=== PATIENT | female | born 1950 | race Caucasian/White ===

== ENCOUNTER 2021-12-22 16:10 | Inpatient (IN) | payer MEDICARE, BC, SELFPAY ==
[2021-12-22] VITALS (24 sets, daily range): BP systolic 86–163; BP diastolic 50–109; PULSE 46–65; RESP 18–20; TEMP 36.4–36.6; O2SAT 93–96; BMI 32.3; BMI 35.9
--- NOTE | 2021-12-22 16:17 | CRLHL7_ITS ---
For Patients: As a result of the Century Cures Act, medical imaging exams and procedure reports are released immediately into your electronic medical record. You may view this report before your referring provider. If you have questions, please contact your health care provider. INDICATION: Difficulty speaking. Unsteady gait. TECHNIQUE: CT head without contrast. COMPARISON: None. FINDINGS: CSF spaces: Within normal limits for age. Brain parenchyma and extra-axial spaces: Moderate bilateral frontal lobe atrophy. The dunn-white differentiation is normal. No sign of mass, hemorrhage, or midline shift. No extra-axial fluid collection. Skull base and calvarium: The visualized paranasal sinuses and mastoid air cells demonstrate no acute or significant findings. The visualized orbits are grossly unremarkable. No skull fractures. IMPRESSION: There is moderate atrophy in the frontal lobes. Otherwise unremarkable exam. No sign of acute ischemia or intracranial hemorrhage. Please note that all CT scans at this facility use dose modulation, iterative reconstruction, and/or weight-based dosing when appropriate to reduce radiation dose to as low as reasonably achievable. Dictated by Uche Ugalde MD @ 12/22/2021 4:34:53 PM (Electronically Signed)
--- NOTE | 2021-12-22 16:26 | CRLHL7_ITS ---
For Patients: As a result of the Century Cures Act, medical imaging exams and procedure reports are released immediately into your electronic medical record. You may view this report before your referring provider. If you have questions, please contact your health care provider. DATE: 12/22/2021 CLINICAL HISTORY: Patient with headache and word-finding difficulties. TECHNIQUE: Standard helical CT image acquisition of the neck up to the skull base after bolus intravenous contrast enhancement. Multiplanar reconstructed images performed on a separate workstation. COMPARISON: CT same day FINDINGS: The origins of the great vessels from the aortic arch are patent. The origin of the right vertebral artery is patent. The origin of the left vertebral artery is patent. The common carotid arteries are patent. There is a severe (70%) stenosis at the origin of the right internal carotid artery by NASCET criteria caused by a non-calcified plaque with a 1.5mm residual lumen. The left internal carotid artery is occluded at its origin with reconstitution in its supraclinoid segment via the [place] and left ophthalmic artery. The rest of the cervical segments of the right internal carotid artery are patent up to the skull base. The right vertebral artery is dominant. The cervical segments of the vertebral arteries are patent up to the skull base. The visualized lung apices are unremarkable. The thyroid gland is unremarkable. The soft tissues of the neck are unremarkable. There are degenerative changes in the cervical spine. IMPRESSION: 1. The left internal carotid artery is occluded at its origin with reconstitution in its supraclinoid segment via the [place] and left ophthalmic artery. 2. Severe (70%) stenosis at the origin of the right internal carotid artery by NASCET criteria caused by a non-calcified plaque with a 1.5mm residual lumen. Please note that all CT scans at this facility use dose modulation, iterative reconstruction, and/or weight-based dosing when appropriate to reduce radiation dose to as low as reasonably achievable. Dictated by Brittany Jenkins MD @ 12/23/2021 8:46:42 AM (Electronically Signed)
--- NOTE | 2021-12-22 16:26 | CRLHL7_ITS ---
For Patients: As a result of the Century Cures Act, medical imaging exams and procedure reports are released immediately into your electronic medical record. You may view this report before your referring provider. If you have questions, please contact your health care provider. DATE: 12/22/2021 CLINICAL HISTORY: Patient with headache and word finding difficulty. TECHNIQUE: Standard helical CT image acquisition through the intracranial circulation following intravenous administration of contrast material with bolus tracking. Multiplanar reconstructed images were performed and interpreted. COMPARISON: CT same day. FINDINGS: The left internal carotid artery is occluded at its origin with reconstitution in its supraclinoid segment via the [place] and left ophthalmic artery. The left middle cerebral artery is widely patent. There is no cerebral aneurysm. The right internal carotid artery is normal. The right middle cerebral artery and its branches are normal. The right anterior cerebral artery and its branches are normal. The left anterior cerebral artery and its branches are normal. The anterior communicating artery is well visualized and appears normal. The right vertebral artery and PICA are normal. The left vertebral artery and PICA are normal. The right vertebral artery is dominant. The basilar artery is patent and appears normal. The right posterior cerebral artery is normal. The left posterior cerebral artery is normal. The visualized venous structures are patent. IMPRESSION: The left internal carotid artery is occluded at its origin with reconstitution in its supraclinoid segment via the [place] and left ophthalmic artery. The left middle cerebral artery is widely patent. Please note that all CT scans at this facility use dose modulation, iterative reconstruction, and/or weight-based dosing when appropriate to reduce radiation dose to as low as reasonably achievable. Dictated by Brittany Jenkins MD @ 12/23/2021 8:48:55 AM (Electronically Signed)
--- NOTE | 2021-12-22 16:29 | ED_ITS ---
HPI - General Adult General Chief complaint: Neuro Symptoms/Altered Deficit Stated complaint: trouble speaking, headche on left side Time Seen by Provider: 12/22/21 16:24 History of Present Illness HPI narrative: 71-year-old woman accompanied by her son I believe with the concern of diff iculty finding words. Assessed initially seated in the triage room. At approximately 6-1/2 hours ago 10:00 a.m. apparently had been experiencing a headache left side of her head. And then 3 hours ago 130 p.m. daughter noted she was having difficulty finding words. It appears as though there were no witnesses to events between 0 and 1:30 p.m. triage nursing today noted that she seemed rather unsteady and stumbling gesturing to the left as does the patient on the way into the emergency department Interview certainly is challenged by Ms. Armas having difficulty with word finding. She is able to answer yes no questions possibly. Seems indicate not having shortness of breath or difficulty breathing. Has no abdominal pain. No cough or cold symptoms. Does describe pain in the left side of her head. She has not been noted to be vomiting. She is able to engage appropriately with exam. Is not clear that she typically gets headaches. Related Data Home Medications Medication Instructions Recorded Confirmed albuterol sulfate 90 mcg/actuation 2 inh inhalation Q4H PRN 12/22/21 12/22/21 aerosol inhaler (ProAir HFA) amlodipine 10 mg tablet 10 mg PO DAILY 12/22/21 12/22/21 atorvastatin 80 mg tablet 80 mg PO HS 12/22/21 12/22/21 citalopram 40 mg tablet 40 mg PO DAILY 12/22/21 12/22/21 ergocalciferol (vitamin D2) 1,250 50,000 unit PO .weekly 12/22/21 12/22/21 mcg (50,000 unit) capsule fluticasone propionate 230 2 puff inhalation Q12H 12/22/21 12/22/21 mcg-salmeterol 21 mcg/actuation HFA inhaler (Advair HFA) irbesartan 300 1 tab PO DAILY 12/22/21 12/22/21 mg-hydrochlorothiazide 12.5 mg tablet trazodone 100 mg tablet 200 mg PO HS PRN insomnia 12/22/21 12/22/21 Allergies Allergy/AdvReac Type Severity Reaction Status Date / Time No Known Drug Allergies Allergy Verified 12/22/21 17:32 [facility] Medical History (Updated 12/23/21 @ 11:58 by Clemente Bauer MD) Colon polyps COPD (chronic obstructive pulmonary disease) Essential hypertension Hyperlipidemia Insomnia Surgical History (Updated 12/22/21 @ 23:07 by Yuliya Funes MD) H/O breast implant H/O: section Social History Highest level of school completed/degree received: 12th grade, no diploma Smoking Status: Current every day smoker What tobacco products do you use: cigarettes Smoking packs per day: 1 Smoking cigarettes per day: 20.0 Years smoked: 53 Smoking pack-years: 53.00 Do you use any of these nicotine containing products: None Second hand tobacco smoke exposure: Yes How often do you have a drink containing alcohol: monthly or less Alcohol type: hard liquor How many standard drinks containing alcohol do you have on a typical day: 1 or 2 How often do you have six or more drinks on one occasion: Never AUDIT-C Alcohol total score: 1 Non-prescribed substance use: denies use Caffeine: Yes (2-3 cups coffee daily) service: No Exam Narrative: Exam Narrative: NAD. GCS 15. Smells of cigarette smoke. Seated calmly. Head is atraumatic. Cranial nerves 2-12 intact but seems to be indicating some loss of sensation in the forehead initially though this is inconsistent with repeat exam. She is not have as noted, any loss of motor to her face. Appears to be moving all extrem ities without difficulty. Appears to have full strength in all extremities with excellent heel seat fitter strength bilaterally. Extremities without edema well perfused. Breathing easily. Lungs are clear. Cardiovascular was regular rate and rhythm no apparent murmur rub or gallop. No facial swelling erythema or tenderness appreciated though she does indicate some pain to palpation of the left parietal temporal area. Ear canal free of fluid. Neck appears to be supple nontender. She clearly has difficulty with word finding. She is able to make a statement of a few words; words don't associate. Is not able to read the brochure that I hold up to her face nodding yes but not able to articulate what it says ?quit plan? I would estimate NIHSS at 4 Const: Vital Signs, click to edit/add: Vital Signs - 24 hr 12/22/21 16:27 12/22/21 16:28 12/22/21 17:00 Temperature 97.9 F Pulse Rate Pulse Rate [Apical ] 54 L Pulse Rate [Right Pulse Oximeter] 65 Respiratory Rate 18 Blood Pressure Blood Pressure [Le ft Arm] Blood Pressure [Ri ght Upper Arm] 137/81 Pulse Oximetry 96 95 Oxygen Delivery Me thod Room Air 12/22/21 16:34 12/22/21 16:45 12/22/21 16:47 Temperature Pulse Rate 64 60 58 L Pulse Rate [Apical ] Pulse Rate [Right Pulse Oximeter] Respiratory Rate Blood Pressure 120/104 H Blood Pressure [Le ft Arm] Blood Pressure [Ri ght Upper Arm] Pulse Oximetry 95 94 95 Oxygen Delivery Me thod 12/22/21 17:00 12/22/21 17:02 12/22/21 17:17 Temperature Pulse Rate 55 L 55 L Pulse Rate [Apical ] Pulse Rate [Right Pulse Oximeter] Respiratory Rate Blood Pressure 124/53 L 140/109 H Blood Pressure [Le ft Arm] Blood Pressure [Ri ght Upper Arm] Pulse Oximetry 96 94 Oxygen Delivery Me thod 12/22/21 17:37 12/22/21 17:45 12/22/21 17:48 Temperature Pulse Rate 62 51 L 52 L Pulse Rate [Apical ] Pulse Rate [Right Pulse Oximeter] Respiratory Rate Blood Pressure 137/50 L Blood Pressure [Le ft Arm] Blood Pressure [Ri ght Upper Arm] Pulse Oximetry 96 96 96 Oxygen Delivery Me thod 12/22/21 18:00 12/22/21 18:02 12/22/21 18:16 Temperature Pulse Rate 52 L 55 L 55 L Pulse Rate [Apical ] Pulse Rate [Right Pulse Oximeter] Respiratory Rate Blood Pressure 133/67 Blood Pressure [Le ft Arm] Blood Pressure [Ri ght Upper Arm] Pulse Oximetry 96 96 95 Oxygen Delivery Me thod 12/22/21 18:17 12/22/21 18:30 12/22/21 18:34 Temperature Pulse Rate 54 L 54 L 55 L Pulse Rate [Apical ] Pulse Rate [Right Pulse Oximeter] Respiratory Rate Blood Pressure 86/71 L 132/53 L Blood Pressure [Le ft Arm] Blood Pressure [Ri ght Upper Arm] Pulse Oximetry 96 95 94 Oxygen Delivery Me thod 12/22/21 18:45 12/22/21 18:47 12/22/21 19:51 Temperature 97.9 F Pulse Rate 55 L 53 L Pulse Rate [Apical ] 61 Pulse Rate [Right Pulse Oximeter] Respiratory Rate 18 Blood Pressure 118/59 L Blood Pressure [Le ft Arm] 163/58 H Blood Pressure [Ri ght Upper Arm] Pulse Oximetry 96 94 96 Oxygen Delivery Me thod Room Air Documenting provider has reviewed patient's vital signs: yes Course Course Hospital Course: Will be sent for CT head, angio pending initial result. Reevaluation(s) Reevaluation #1: Reviewed again with Ms. Armas her symptoms. Seems to be stating a few more words but still quite unclear has a little trouble expressing herself with speech or with writing. Words are intelligible but not strung together in sentence. As examine occurring in the bed is able to demonstrate better coordination of extremities was actually appears to be quite good. She is bilaterally accurate with heel to villalobos -- no evidence generally of limb ataxia. Time: 17:00 Consultations Consultation #1: While in initial head CT scan, I spoke with Stroke Neuro. Noting numerous variables and timing of initial headache, would be outside the window for intervention. Angio results still pending. Consultation #2: Spoke with our hospitalist anticipating admission. Returning to see Mrs. Armas, she is forming longer sentences still clearly with word-finding difficulty. There is a subtle slurring to her speech at times as well. Laughs. Otherwise appears to feel well. CT angiography is now complete and pending result. Time: 17:44 Consultation #3: I received a call from radiology for results of CTA. Noting occlusion of the left internal carotid artery. Good collaterals are reported. Conveyed this to Stroke Neuro thought left internal carotid occlusion chronic. Given aspirin and Plavix per recommendation. Additional Consultation(s): With full results available of CTA Stroke Neuro still recommending admission with follow-up MRI and then revascularization given bilateral nature of carotid occlusions. No bed availability elsewhere. CTA IMPRESSION: 1. The left internal carotid artery is occluded at its origin with reconstitution in its supraclinoid segment via the [place] and left ophthalmic artery. 2. Severe (70%) stenosis at the origin of the right internal carotid artery by NASCET criteria caused by a non-calcified plaque with a 1.5mm residual lumen. Vital Signs Vital signs: Initial Vital Signs Temperature 97.9 F 12/22/21 16:27 Temperature Source Temporal Artery Scan 12/22/21 16:27 Pulse Rate 65 12/22/21 16:27 Respiratory Rate 18 12/22/21 16:27 Blood Pressure 137/81 12/22/21 16:27 Blood Pressure Mean 99 12/22/21 16:27 Blood Pressure Position Sitting 12/22/21 16:27 Pulse Oximetry 96 12/22/21 16:27 Oxygen Delivery Method 12/22/21 16:27 Vital Signs Temperature 97.9 F 12/22/21 16:27 Pulse Rate 65 12/22/21 16:27 Respiratory Rate 18 12/22/21 16:27 Blood Pressure 137/81 12/22/21 16:27 Pulse Oximetry 96 12/22/21 16:27 Oxygen Delivery Method 12/22/21 16:27 Temperature 98.4 F 12/23/21 08:00 Pulse Rate 61 12/23/21 08:00 Respiratory Rate 18 12/23/21 08:00 Blood Pressure 143/85 H 12/23/21 08:00 Pulse Oximetry 92 12/23/21 08:00 Oxygen Delivery Method 12/23/21 08:00 Medical Decision Making Lab Data Lab results reviewed: Yes I reviewed the patient's lab results Labs: Lab Results 12/22/21 12/22/21 12/22/21 Range/Units 16:24 16:28 16:28 WBC 5.92 (4.50-11.00) K/uL RBC 4.63 (4.00-5.20) m/uL Hgb 14.5 (12.0-16.0) gm/dL Hct 43.9 (33.0-51.0) % MCV 95 (80-100) fL MCH 31 (26-34) pg MCHC 33 (32-36) gm/dL RDW Coeff of Parviz 13.1 (11.5-15.5) % Plt Count 178 (140-440) K/uL Neut % (Auto) 58.6 (42.0-72.0) % Lymph % (Auto) 31.3 (20-44) % [place] % (Auto) 7.9 (0.0-11.0) % Eos % (Auto) 1.5 (0.0-7.0) % Baso % (Auto) 0.7 (0.0-3.0) % Neut # (Auto) 3.47 (1.7-7.0) K/uL Lymph # (Auto) 1.85 (0.90-2.90) K/uL [place] # (Auto) 0.50 (0.00-0.90) K/UL Eos # (Auto) 0.09 (0.00-0.50) K/uL Baso # (Auto) 0.04 (0.00-0.30) K/uL Abs Immat Gran (auto) 0.00 (0.00-0.30) K/uL Imm/Tot Granulo (auto) Not Reportable Sodium 136 (135-149) mmol/L Potassium 4.0 (3.6-5.1) mmol/L Chloride 104 (96-114) mmol/L Carbon Dioxide 27 (20-32) mmol/L BUN 14 (7-30) mg/dL Creatinine 1.2 (0.5-1.5) mg/dL Estimated Creat Clear 40.25 Estimated GFR 48 ml/min Glucose 99 (60-115) mg/dL Calcium 9.1 (8.4-10.6) mg/dL Troponin I < 0.01 L (0.01-0.04) ng/mL C-Reactive Protein < 0.5 L (0.5-1.0) mg/dL NT-Pro-B Natriuret Pep (0-125) PG/mL Ethyl Alcohol < 0.01 L (0.01-0.03) % SARS-CoV-2 (PCR) (Negative) POC Troponin I 0.00 L (0.01-0.04) ng/ml 12/22/21 12/22/21 Range/Units 16:28 16:40 WBC (4.50-11.00) K/uL RBC (4.00-5.20) m/uL Hgb (12.0-16.0) gm/dL Hct (33.0-51.0) % MCV (80-100) fL MCH (26-34) pg MCHC (32-36) gm/dL RDW Coeff of [place]viz (11.5-15.5) % Plt Count (140-440) K/uL Neut % (Auto) (42.0-72.0) % Lymph % (Auto) (20-44) % [place] % (Auto) (0.0-11.0) % Eos % (Auto) (0.0-7.0) % Baso % (Auto) (0.0-3.0) % Neut # (Auto) (1.7-7.0) K/uL Lymph # (Auto) (0.90-2.90) K/uL [place] # (Auto) (0.00-0.90) K/UL Eos # (Auto) (0.00-0.50) K/uL Baso # (Auto) (0.00-0.30) K/uL Abs Immat Gran (auto) (0.00-0.30) K/uL Imm/Tot Granulo (auto) Sodium (135-149) mmol/L Potassium (3.6-5.1) mmol/L Chloride (96-114) mmol/L Carbon Dioxide (20-32) mmol/L BUN (7-30) mg/dL Creatinine (0.5-1.5) mg/dL Estimated Creat Clear Estimated GFR ml/min Glucose (60-115) mg/dL Calcium (8.4-10.6) mg/dL Troponin I (0.01-0.04) ng/mL C-Reactive Protein (0.5-1.0) mg/dL NT-Pro-B Natriuret Pep 204 H (0-125) PG/mL Ethyl Alcohol (0.01-0.03) % SARS-CoV-2 (PCR) Negative SARS-CoV-2 (Negative) POC Troponin I (0.01-0.04) ng/ml ECG Data Attestation: I personally reviewed and interpreted this ECG as follows: (Wandering baseline initially but do not see acute ST elevation or depression. No Q-waves apparent. Sinus rhythm rate of 55. No prior for comparison) Critical Care Time Critical Care Time Critical Care Time: Yes Attestation: The patient required my highest level preparedness to intervene emergently and I personally spent this critical care time directly and personally managing the patient. This critical care time included: Obtaining a history; Examining the patient; Pulse oximetry; Ordering and reviewing of studies; Arranging urgent treatment with development of a management plan; Evaluation of patients response to treatment; Frequent reassessment discussions with other providers. This critical care time was performed to assess and manage the high probability of imminent life-threatening deterioration that could result in multiorgan failure. It was exclusive of separate billable procedures and treating other patients and teaching time. Total Critical Care Time in Minutes: 50 Discharge Plan Discharge Clinical Impression: Nicotine dependence, Occlusion of left internal carotid artery, Acute CVA (cerebrovascular accident), Stenosis of right carotid artery
[2021-12-22 16:49] LABS: Basophils Absolute Auto 0.04 K/uL (0.00-0.30); Basophils Percent Auto 0.7 % (0.0-3.0); Eosinophils Absolute Auto 0.09 K/uL (0.00-0.50); Eosinophils Percent Auto 1.5 % (0.0-7.0); Hematocrit 43.9 % (33.0-51.0); Hemoglobin* 14.5 gm/dL (12.0-16.0); Lymphocytes Absolute Auto 1.85 K/uL (0.90-2.90); Lymphocytes Percent Auto 31.3 % (20-44); Mean Corpuscular HGB Conc 33 gm/dL (32-36); Mean Corpuscular Hemoglobin 31 pg (26-34); Mean Corpuscular Volume 95 fL (80-100); Monocytes Percent Auto 7.9 % (0.0-11.0); Neutrophils Absolute Auto 3.47 K/uL (1.7-7.0); Neutrophils Percent Auto 58.6 % (42.0-72.0); Platelet Count* 178 K/uL (140-440); RDW Coefficient of Variation % 13.1 % (11.5-15.5); Red Blood Count 4.63 m/uL (4.00-5.20); White Blood Count* 5.92 K/uL (4.50-11.00)
[2021-12-22 16:56] LABS: Slide Review Reflex No
[2021-12-22] MEDS: 0.9 % SODIUM CHLORIDE 1000 ml 1,000 ML IV (17:00)
[2021-12-22 17:02] LABS: Chloride* 104 mmol/L (96-114); Sodium* 136 mmol/L (135-149)
[2021-12-22 17:04] LABS: Creatinine* 1.2 mg/dL (0.5-1.5); Est. Creatinine Clearance* 40.25; Estimated Glomerular Filt Rate 48 ml/min
[2021-12-22 17:05] LABS: Blood Urea Nitrogen* 14 mg/dL (7-30); Carbon Dioxide* 27 mmol/L (20-32)
[2021-12-22 17:06] LABS: Calcium* 9.1 mg/dL (8.4-10.6); Ethanol* < 0.01 % (0.01-0.03); Glucose* 99 mg/dL (60-115)
[2021-12-22 17:14] LABS: NT Pro B Type NatriureticPept* 204 PG/mL (0-125)
[2021-12-22 17:20] LABS: SARS PCR* Negative SARS-CoV-2 (Negative)
[2021-12-22 17:37] LABS: Troponin I* < 0.01 ng/mL (0.01-0.04)
[2021-12-22 17:38] LABS: C Reactive Protein* < 0.5 mg/dL (0.5-1.0)
[2021-12-22] MEDS: ASPIRIN 81 MG TAB.CHEW 324 MG PO (18:17)
[2021-12-22] MEDS: CLOPIDOGREL 300 MG TABLET PO (18:17)
--- NOTE | 2021-12-22 18:54 | ED.NURSE ---
RN report given. No neurological changes since first exam.
--- NOTE | 2021-12-22 21:23 | PM.IMHP1 ---
Hospitalist- H&P: HPI History of Present Illness Date Seen: 12/22/21 Chief complaint: trouble speaking, headche on left side Narrative: Pat Armas is a 71 year old female presented to the emergency room with her family this afternoon for acute word-finding difficulty. Patient noted a left-sided headache this morning, around 10:00am, and then was seen by her daughter at 1:30pm and having difficulty with word finding and some garbled speech. She presented to the emergency room around 4pm. ER Course and findings: - Reassuring head CT without contrast - head and neck CTA exhibits occlusion of the left internal carotid beginning its origin extending into the intracranial segment with retrograde flow within the intracranial ICA. Also noted is advanced stenosis of the right internal carotid artery origin secondary to plaque - reassuring labs and vital signs When I see patient and her , her word-finding difficulty has improved but still present. She continues to have a mild left-sided headache without any other associated symptoms. She denies chest pain, dyspnea, abdominal pain, or dysuria. 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 She understands the importance of quitting smoking and is amenable to a nicotine patch upon admission. She lives with her Meng, near her adult children and grandchildren. 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 Meng would be medical decision maker if needed, and patient requests DNR/DNI status. Review of Systems Status of ROS: Reports: 10 or more systems reviewed and unremarkable except as noted in History and below Narrative: notes that patient sleeps a lot, on further questioning, it sounds like this is chronic. [facility] Medical History (Updated 12/22/21 @ 23:07 by Yuliya Funes MD) Colon polyps COPD (chronic obstructive pulmonary disease) Essential hypertension Hyperlipidemia Insomnia Surgical History (Updated 12/22/21 @ 23:07 by Yuliya Funes MD) H/O breast implant H/O: section Social History Highest level of school completed/degree received: 12th grade, no diploma Smoking Status: Current every day smoker What tobacco products do you use: cigarettes Smoking packs per day: 1 Smoking cigarettes per day: 20.0 Years smoked: 53 Smoking pack-years: 53.00 Do you use any of these nicotine containing products: None Second hand tobacco smoke exposure: Yes How often do you have a drink containing alcohol: monthly or less Alcohol type: hard liquor How many standard drinks containing alcohol do you have on a typical day: 1 or 2 How often do you have six or more drinks on one occasion: Never AUDIT-C Alcohol total score: 1 Non-prescribed substance use: denies use Caffeine: Yes (2-3 cups coffee daily) service: No Meds Home Medications and Allergies Home Medications Medication Instructions Recorded Confirmed Type albuterol sulfate 90 mcg/actuation 2 inh inhalation Q4H PRN 12/22/21 12/22/21 History aerosol inhaler (ProAir HFA) amlodipine 10 mg tablet 10 mg PO DAILY 12/22/21 12/22/21 History atorvastatin 80 mg tablet 80 mg PO HS 12/22/21 12/22/21 History citalopram 40 mg tablet 40 mg PO DAILY 12/22/21 12/22/21 History ergocalciferol (vitamin D2) 1,250 50,000 unit PO .weekly 12/22/21 12/22/21 History mcg (50,000 unit) capsule fluticasone propionate 230 2 puff inhalation Q12H 12/22/21 12/22/21 History mcg-salmeterol 21 mcg/actuation HFA inhaler (Advair HFA) irbesartan 300 1 tab PO DAILY 12/22/21 12/22/21 History mg-hydrochlorothiazide 12.5 mg tablet trazodone 100 mg tablet 200 mg PO HS PRN insomnia 12/22/21 12/22/21 History Allergies Allergy/AdvReac Type Severity Reaction Status Date / Time No Known Drug Allergies Allergy Verified 12/22/21 17:32 Exam Narrative: Exam Narrative: GEN: Alert and oriented, answering questions appropriately with intermittent word-finding difficulties HEENT: Normal external ears, EOMIs bilaterally, no scleral icterus CV: RRR, No concerning murmurs, rubs, or gallops R: LCTA bilaterally without concerning wheezing, rales, or rhonchi, air movement adequate Ext: wwp, no concerning edema Skin: No concerning skin lesions or rashes on exposed skin Neuro: No focal deficits, cranial nerves intact, no resting tremor, no gait abnormalities Psych: Appropriate Const: Vital Signs, click to edit/add: Vital Signs - 24 hr 12/22/21 16:27 12/22/21 16:28 12/22/21 17:00 Temperature 97.9 F Pulse Rate Pulse Rate [Apical ] 54 L Pulse Rate [Right Pulse Oximeter] 65 Respiratory Rate 18 Blood Pressure Blood Pressure [Le ft Arm] Blood Pressure [Ri ght Upper Arm] 137/81 Pulse Oximetry 96 95 Oxygen Delivery Me thod Room Air 12/22/21 16:34 12/22/21 16:45 12/22/21 16:47 Temperature Pulse Rate 64 60 58 L Pulse Rate [Apical ] Pulse Rate [Right Pulse Oximeter] Respiratory Rate Blood Pressure 120/104 H Blood Pressure [Le ft Arm] Blood Pressure [Ri ght Upper Arm] Pulse Oximetry 95 94 95 Oxygen Delivery Me thod 12/22/21 17:00 12/22/21 17:02 12/22/21 17:17 Temperature Pulse Rate 55 L 55 L Pulse Rate [Apical ] Pulse Rate [Right Pulse Oximeter] Respiratory Rate Blood Pressure 124/53 L 140/109 H Blood Pressure [Le ft Arm] Blood Pressure [Ri ght Upper Arm] Pulse Oximetry 96 94 Oxygen Delivery Me thod 12/22/21 17:37 12/22/21 17:45 12/22/21 17:48 Temperature Pulse Rate 62 51 L 52 L Pulse Rate [Apical ] Pulse Rate [Right Pulse Oximeter] Respiratory Rate Blood Pressure 137/50 L Blood Pressure [Le ft Arm] Blood Pressure [Ri ght Upper Arm] Pulse Oximetry 96 96 96 Oxygen Delivery Me thod 12/22/21 18:00 12/22/21 18:02 12/22/21 18:16 Temperature Pulse Rate 52 L 55 L 55 L Pulse Rate [Apical ] Pulse Rate [Right Pulse Oximeter] Respiratory Rate Blood Pressure 133/67 Blood Pressure [Le ft Arm] Blood Pressure [Ri ght Upper Arm] Pulse Oximetry 96 96 95 Oxygen Delivery Me thod 12/22/21 18:17 12/22/21 18:30 12/22/21 18:34 Temperature Pulse Rate 54 L 54 L 55 L Pulse Rate [Apical ] Pulse Rate [Right Pulse Oximeter] Respiratory Rate Blood Pressure 86/71 L 132/53 L Blood Pressure [Le ft Arm] Blood Pressure [Ri ght Upper Arm] Pulse Oximetry 96 95 94 Oxygen Delivery Me thod 12/22/21 18:45 12/22/21 18:47 12/22/21 19:51 Temperature 97.9 F Pulse Rate 55 L 53 L Pulse Rate [Apical ] 61 Pulse Rate [Right Pulse Oximeter] Respiratory Rate 18 Blood Pressure 118/59 L Blood Pressure [Le ft Arm] 163/58 H Blood Pressure [Ri ght Upper Arm] Pulse Oximetry 96 94 96 Oxygen Delivery Me thod Room Air Hospitalist - H&P: Result Labs Labs: Short CBC 12/22/21 Range/Units 16:28 WBC 5.92 (4.50-11.00) K/uL Hgb 14.5 (12.0-16.0) gm/dL Hct 43.9 (33.0-51.0) % Plt Count 178 (140-440) K/uL BMP 12/22/21 16:28 Sodium 136 Potassium 4.0 Chloride 104 Carbon Dioxide 27 BUN 14 Creatinine 1.2 Glucose 99 Calcium 9.1 Cardiac Enzymes 12/22/21 Range/Units 16:28 Troponin I < 0.01 L (0.01-0.04) ng/mL Assessment and Plan Assessment and plan (1) Speech abnormality: Status: Acute Assessment and Plan: - concerning for CVA with occlusion of L internal carotid and stenosis of R carotid - reviewed the case with Dr. Mcdowell, stroke neurologist at [facility]: He felt that patient's L carotid occlusion was likely chronic. For treatment, ASA and Plavix + revascularization of R internal carotid (procedure to be done semi urgently, given symptoms). Attempted transfer throughout our state, and no beds available. We will continue to attempt transfer while patient is hospitalized - permissive HTN - MRI to be completed in the morning - TTE tomorrow - continue home statin (2) Occlusion of left internal carotid artery: Status: Acute (3) Stenosis of right carotid artery: Status: Acute (4) Hyperlipidemia: Status: Acute (5) COPD (chronic obstructive pulmonary disease): Problem comment: moderate obstruction on PFTs 2019 Status: Acute Assessment and Plan: - quiescent, continue home medications (6) Essential hypertension: Status: Acute Assessment and Plan: - hold home medications, permissive HTN
[2021-12-22] MEDS: NICOTINE 14 mg PATCH 1 PATCH TRANSDERMA (22:30)
[2021-12-22] MEDS: ATORVASTATIN CALCIUM 40 MG TABLET 80 MG PO (22:31)
--- NOTE | 2021-12-23 02:52 | PC.NURSE ---
Pt a/o and able to verbalize needs on arrival to MD. Slightly hypertensive and HR bradycardic. Tele= sinus vini. Minimal intermittent word finding difficulties. No weakness or facial droop observed. at bedside for majority of the evening.
[2021-12-23 04:18] VITALS: BP 134/76; PULSE 52; RESP 18; TEMP 36.8; O2SAT 93
[2021-12-23 07:00] VITALS: PULSE 53
[2021-12-23 07:03] LABS: Basophils Absolute Auto 0.03 K/uL (0.00-0.30); Basophils Percent Auto 0.5 % (0.0-3.0); Eosinophils Absolute Auto 0.26 K/uL (0.00-0.50); Eosinophils Percent Auto 4.4 % (0.0-7.0); Hematocrit 41.2 % (33.0-51.0); Hemoglobin* 13.4 gm/dL (12.0-16.0); Lymphocytes Absolute Auto 1.86 K/uL (0.90-2.90); Lymphocytes Percent Auto 31.4 % (20-44); Mean Corpuscular HGB Conc 33 gm/dL (32-36); Mean Corpuscular Hemoglobin 31 pg (26-34); Mean Corpuscular Volume 96 fL (80-100); Neutrophils Absolute Auto 3.24 K/uL (1.7-7.0); Neutrophils Percent Auto 54.7 % (42.0-72.0); Platelet Count* 156 K/uL (140-440); Red Blood Count 4.31 m/uL (4.00-5.20); White Blood Count* 5.92 K/uL (4.50-11.00)
[2021-12-23 07:05] LABS: Slide Review Reflex No
[2021-12-23 07:16] LABS: Chloride* 107 mmol/L (96-114); Potassium* 4.2 mmol/L (3.6-5.1); Sodium* 139 mmol/L (135-149)
[2021-12-23 07:19] LABS: Blood Urea Nitrogen* 13 mg/dL (7-30); Carbon Dioxide* 27 mmol/L (20-32); Cholesterol* 105 mg/dL (90-199); Creatinine* 1.1 mg/dL (0.5-1.5); Est. Creatinine Clearance* 43.91; Estimated Glomerular Filt Rate 54 ml/min; Glucose* 93 mg/dL (60-115); Triglycerides* 159 mg/dL (40-149)
[2021-12-23 07:20] LABS: Calcium* 8.6 mg/dL (8.4-10.6); HDL Cholesterol* 30 mg/dL (>=50); LDL Cholesterol Calculated 43 mg/dL (<100)
[2021-12-23 08:00] VITALS: BP 143/85; PULSE 61; RESP 18; TEMP 36.9; O2SAT 92
[2021-12-23] MEDS: CITALOPRAM HYDROBROMIDE 20 MG TABLET 40 MG PO (09:36)
[2021-12-23] MEDS: CLOPIDOGREL 75 MG TABLET PO (09:37)
[2021-12-23] MEDS: ASPIRIN EC 325 MG TABLET PO (09:38)
[2021-12-23 11:00] VITALS: BP 148/59; PULSE 68; RESP 18; TEMP 36.6; O2SAT 92
[2021-12-23] MEDS: NICOTINE 14 mg PATCH 1 PATCH TRANSDERMA (14:53)
--- NOTE | 2021-12-23 15:43 | PM.DS1 ---
DS: Providers Provider Date Seen: 12/23/21 Date of admission: 12/22/21 20:55 Primary care physician: Clemente Crooks MD Admitting Clinician: Yuliya Funes MD Attending Physician on discharge: Yuliya Funes MD Date of Discharge: 12/23/21 DS: Diagnosis Discharge Diagnosis (1) Acute CVA (cerebrovascular accident): Status: Acute Problem details: Patient admitted to the hospital with acute onset of speech difficulty. MRI showed multiple areas of small infarct in the left MCA distribution. CTA showed complete occlusion of the left carotid artery. Suspected to be chronic. Right carotid artery with at least 70% stenosis. Stroke Neurology and vascular surgery consulted. Recommend outpatient follow-up with vascular surgery for further evaluation. Medical management in the meantime (2) Stenosis of right carotid artery: Status: Acute Problem details: Severe, 70%, right carotid stenosis. Concerning in light of occlusion of left internal carotid. Vascular surgery consult as outpatient (3) Occlusion of left internal carotid artery: Status: Acute Problem details: Suspected to be chronic (4) Essential hypertension: Status: Acute Problem details: Permissive hypertension during hospital stay. Resume blood pressure medicines at half dose pending outpatient followup (5) COPD (chronic obstructive pulmonary disease): Status: Acute Problem details: moderate obstruction on PFTs 2020 (6) Speech abnormality: Status: Acute Problem details: Secondary to stroke. Improved overnight. (7) Nicotine dependence: Status: Acute Problem details: Patient is interested in stopping smoking. This did is strongly encouraged. Nicotine patch as prescribed. DS: Summary Hospital Course Hospital Course: Patient presented the emergency room with onset of some expressive aphasia. She was out of the window for aggressive intervention. Attempts to transfer because of concern about more severe vascular disease were unsuccessful. She is admitted to the hospital. Overnight she had significant improvement but not complete resolution of her speech. She still has some difficulties with fluency. Speech is slow but improved compared to yesterday according to her . No other obvious neurologic findings. Imaging showed complete occlusion of the left carotid of unknown duration but suspected to be chronic. Right carotid with severe stenosis at 70%. MRI shows small areas of infarct in the left middle artery distribution Status at Discharge Cognitive/behavioral status at discharge: Back to baseline except for slow speech with some loss of fluency Functional status at discharge: independent ambulation Overall status at discharge: patient is progressing back to baseline Time Spent with Patient Time attestation: Total time spent providing and/or coordinating discharge services: Time spent: Greater than 30 minutes Exam Narrative: Exam Narrative: She is alert and appears in no distress. She has mild delay in speech fluency. Otherwise very articulate. She is oriented to her circumstances. No slurring of speech. No difficulties with comprehension. Head is without evidence of trauma. Eyes are normal pupils are equal round reactive to light. Extraocular movements are full. Visual jewell are intact. No facial asymmetry. Oropharynx is normal. Tongue is midline. Neck is supple without mass or adenopathy. She has a diminished but present left carotid pulse is and a good right carotid pulse. Respirations are clear to auscultation. Decreased breath sounds in all lung jewell. No wheezing rales or rhonchi. Cardiovascular: S1, S2, regular rate and rhythm. Abdomen is soft without tenderness. Upper extremities with 5/5 strength in finger extension, economic analysis director strength, wrist flexion and wrist extension. Elbow flexion and elbow extension shoulder flexion and extension bilaterally all 5/5. Hip flexion, knee flexion and extension, ankle dorsiflexion and plantar flexion all 5/5 bilaterally. Brisk withdrawal to Babinski testing. [id number] is accurate. Const: Vital Signs, click to edit/add: Vital Signs - 24 hr 12/22/21 16:27 12/22/21 16:28 12/22/21 17:00 Temperature 97.9 F Pulse Rate Pulse Rate [Apical ] 54 L Pulse Rate [Right Pulse Oximeter] 65 Respiratory Rate 18 Blood Pressure Blood Pressure [Le ft Arm] Blood Pressure [Ri ght Upper Arm] 137/81 Pulse Oximetry 96 95 [facility] 12/22/21 16:34 12/22/21 16:45 12/22/21 16:47 Temperature Pulse Rate 64 60 58 L Pulse Rate [Apical ] Pulse Rate [Right Pulse Oximeter] Respiratory Rate Blood Pressure 120/104 H Blood Pressure [Le ft Arm] Blood Pressure [Ri ght Upper Arm] Pulse Oximetry 95 94 95 Oxygen Delivery Me thod 12/22/21 17:00 12/22/21 17:02 12/22/21 17:17 Temperature Pulse Rate 55 L 55 L Pulse Rate [Apical ] Pulse Rate [Right Pulse Oximeter] Respiratory Rate Blood Pressure 124/53 L 140/109 H Blood Pressure [Le ft Arm] Blood Pressure [Ri ght Upper Arm] Pulse Oximetry 96 94 Oxygen Delivery Me thod 12/22/21 17:37 12/22/21 17:45 12/22/21 17:48 Temperature Pulse Rate 62 51 L 52 L Pulse Rate [Apical ] Pulse Rate [Right Pulse Oximeter] Respiratory Rate Blood Pressure 137/50 L Blood Pressure [Le ft Arm] Blood Pressure [Ri ght Upper Arm] Pulse Oximetry 96 96 96 Oxygen Delivery Me thod 12/22/21 18:00 12/22/21 18:02 12/22/21 18:16 Temperature Pulse Rate 52 L 55 L 55 L Pulse Rate [Apical ] Pulse Rate [Right Pulse Oximeter] Respiratory Rate Blood Pressure 133/67 Blood Pressure [Le ft Arm] Blood Pressure [Ri ght Upper Arm] Pulse Oximetry 96 96 95 Oxygen Delivery Me thod 12/22/21 18:17 12/22/21 18:30 12/22/21 18:34 Temperature Pulse Rate 54 L 54 L 55 L Pulse Rate [Apical ] Pulse Rate [Right Pulse Oximeter] Respiratory Rate Blood Pressure 86/71 L 132/53 L Blood Pressure [Le ft Arm] Blood Pressure [Ri ght Upper Arm] Pulse Oximetry 96 95 94 Oxygen Delivery Me thod 12/22/21 18:45 12/22/21 18:47 12/22/21 19:51 Temperature 97.9 F Pulse Rate 55 L 53 L Pulse Rate [Apical ] 61 Pulse Rate [Right Pulse Oximeter] Respiratory Rate 18 Blood Pressure 118/59 L Blood Pressure [Le ft Arm] 163/58 H Blood Pressure [Ri ght Upper Arm] Pulse Oximetry 96 94 96 Oxygen Delivery Me thod Room Air 12/22/21 20:55 12/22/21 21:01 12/22/21 22:32 Temperature Pulse Rate 49 L Pulse Rate [Apical ] Pulse Rate [Right Pulse Oximeter] Respiratory Rate 20 18 Blood Pressure Blood Pressure [Le ft Arm] Blood Pressure [Ri ght Upper Arm] Pulse Oximetry 96 93 Oxygen Delivery Me thod Room Air Room Air 12/22/21 23:00 12/22/21 23:00 12/22/21 23:00 Temperature 97.5 F L Pulse Rate 56 L Pulse Rate [Apical ] 46 L 46 L Pulse Rate [Right Pulse Oximeter] Respiratory Rate 18 18 Blood Pressure Blood Pressure [Le ft Arm] 148/64 H Blood Pressure [Ri ght Upper Arm] Pulse Oximetry 93 Oxygen Delivery Me thod Room Air 12/23/21 04:18 12/23/21 08:00 12/23/21 07:00 Temperature 98.3 F 98.4 F Pulse Rate 53 L Pulse Rate [Apical ] 52 L 61 Pulse Rate [Right Pulse Oximeter] Respiratory Rate 18 18 Blood Pressure Blood Pressure [Le ft Arm] 134/76 143/85 H Blood Pressure [Ri ght Upper Arm] Pulse Oximetry 93 92 Oxygen Delivery Me thod Room Air Room Air Documenting provider has reviewed patient's vital signs: yes DS: Data Data Completed and Pending Labs on day of discharge: Labs from last 24 hours 12/23/21 12/23/21 12/22/21 06:14 06:14 16:40 WBC 5.92 RBC 4.31 Hgb 13.4 Hct 41.2 MCV 96 MCH 31 MCHC 33 RDW Coeff of Parviz 13.0 Plt Count 156 Neut % (Auto) 54.7 Lymph % (Auto) 31.4 [place] % (Auto) 9.0 Eos % (Auto) 4.4 Baso % (Auto) 0.5 Neut # (Auto) 3.24 Lymph # (Auto) 1.86 [place] # (Auto) 0.50 Eos # (Auto) 0.26 Baso # (Auto) 0.03 Abs Immat Gran (auto) 0.00 Imm/Tot Granulo (auto) 0.0 Sodium 139 Potassium 4.2 Chloride 107 Carbon Dioxide 27 BUN 13 Creatinine 1.1 Estimated Creat Clear 43.91 Estimated GFR 54 Glucose 93 Calcium 8.6 Troponin I C-Reactive Protein NT-Pro-B Natriuret Pep Triglycerides 159 H Cholesterol 105 LDL Cholesterol, Calc 43 HDL Cholesterol 30 L Ethyl Alcohol SARS-CoV-2 (PCR) Negative SARS-CoV-2 POC Troponin I 12/22/21 12/22/21 12/22/21 16:28 16:28 16:28 WBC 5.92 RBC 4.63 Hgb 14.5 Hct 43.9 MCV 95 MCH 31 MCHC 33 RDW Coeff of Parviz 13.1 Plt Count 178 Neut % (Auto) 58.6 Lymph % (Auto) 31.3 [place] % (Auto) 7.9 Eos % (Auto) 1.5 Baso % (Auto) 0.7 Neut # (Auto) 3.47 Lymph # (Auto) 1.85 [place] # (Auto) 0.50 Eos # (Auto) 0.09 Baso # (Auto) 0.04 Abs Immat Gran (auto) 0.00 Imm/Tot Granulo (auto) Not Reportable Sodium 136 Potassium 4.0 Chloride 104 Carbon Dioxide 27 BUN 14 Creatinine 1.2 Estimated Creat Clear 40.25 Estimated GFR 48 Glucose 99 Calcium 9.1 Troponin I < 0.01 L C-Reactive Protein < 0.5 L NT-Pro-B Natriuret Pep 204 H Triglycerides Cholesterol LDL Cholesterol, Calc HDL Cholesterol Ethyl Alcohol < 0.01 L SARS-CoV-2 (PCR) POC Troponin I 12/22/21 16:24 WBC RBC Hgb Hct MCV MCH MCHC RDW Coeff of Parviz Plt Count Neut % (Auto) Lymph % (Auto) [place] % (Auto) Eos % (Auto) Baso % (Auto) Neut # (Auto) Lymph # (Auto) [place] # (Auto) Eos # (Auto) Baso # (Auto) Abs Immat Gran (auto) Imm/Tot Granulo (auto) Sodium Potassium Chloride Carbon Dioxide BUN Creatinine Estimated Creat Clear Estimated GFR Glucose Calcium Troponin I C-Reactive Protein NT-Pro-B Natriuret Pep Triglycerides Cholesterol LDL Cholesterol, Calc HDL Cholesterol Ethyl Alcohol SARS-CoV-2 (PCR) POC Troponin I 0.00 L Discharge Plan Discharge Disposition: Home, Self-Care Date of Admission: 12/22/21 20:55 Attending Provider on Discharge: Bridger Leigh Primary Care Provider: Clemente Crooks Condition: Improved Anticipated Discharge Date/Time: 12/23/21 14:53 Discharge Medications: New clopidogrel 75 mg Tablet 75 mg PO DAILY Qty: 30 0RF aspirin 81 mg tablet,delayed release (DR/EC) 81 mg PO DAILY Qty: 30 2RF nicotine 21-14-7 mg/24 hr patch, TD daily, sequential 1 patch transdermal DAILY Qty: 56 0RF Continued atorvastatin 80 mg tablet 80 mg PO HS Label Comments: TAKE 1 TABLET BY MOUTH AT BEDTIME citalopram 40 mg tablet 40 mg PO DAILY Label Comments: TAKE 1 TABLET BY MOUTH EVERY DAY trazodone 100 mg tablet 200 mg PO HS PRN (Reason: insomnia) Label Comments: TAKE 2 TABLETS BY MOUTH AT BEDTIME ergocalciferol (vitamin D2) 1,250 mcg (50,000 unit) capsule 50,000 unit PO .weekly Label Comments: TAKE 50,000 UNITS WEEKLY Advair HFA 230-21 mcg/actuation HFA aerosol inhaler 2 puff INHALATION Q12H Label Comments: INHALE 2 PUFFS BY MOUTH TWICE DAILY albuterol sulfate [ProAir HFA] 90 mcg/actuation HFA aerosol inhaler 2 inh inhalation Q4H PRN Changed amlodipine 10 mg tablet 5 mg PO DAILY Qty: 30 0RF Label Comments: TAKE 1 TABLET BY MOUTH DAILY irbesartan-hydrochlorothiazide 300-12.5 mg tablet 0.5 tab PO DAILY Qty: 30 0RF Label Comments: TAKE 1 TABLET BY MOUTH DAILY Discharge Orders: Discharge Order (Routine); Ordered 12/23/21 Ordered By: Bridger Leigh Additional Instructions: I have made changes to your medications as noted above. Cut both your blood pressure medicines (amlodipine and irbesartan) in half and take half pill a day until you see your doctor next week. I want your blood pressure to be mildly elevated until you have an appointment next week. New prescriptions for aspirin 81 mg daily and clopidogrel 75 mg daily and nicotine patches. Stopping smoking is the most important thing you can do to prevent another stroke. Talk to your doctor about outpatient physical therapy. Make an appointment with vascular surgery in [place] at the next available appointment. Activity Level: Activity as Tolerated Discharge Diet: Regular Follow Up Appointments: Clemente Crooks MD [Primary Care Provider] - (Next week) Forms: [email or web address] Info Instructions
--- NOTE | 2021-12-23 16:25 | PC.NURSE ---
Jelani by Dr. Leigh. Tele indicates sinus bradycardia. Pt taken for MRI of Head to X-ray just prior to noon. Patient had an echocardiogram at bedside. Pt's communication ability improved since admission. Plan d/c to home later today with outpatient vascular surgery consult in process. Care of this patient transferred to Yamel MARTÍNEZ for evening shift.
--- NOTE | 2021-12-23 17:19 | PC.NURSE ---
PATIENT DISCHARGED TO HOME WITH , UP SBA WITH STEADY GAIT, IV REMOVED, ALL BELONGINGS SENT WITH PATIENT, NICOTINE PATCH LEFT INTACT ON PATIENT NEW MEDICATION FOR HOME, PATIENT AND VERBALIZED UNDERSTANDING OF DISCHARGE INFORMATION AND HAD NO FURTHER QUESTIONS AT THIS TIME LEFT VIA WHEELCHAIR AT 1715.
--- NOTE | 2021-12-23 23:33 | CRLHL7_ITS ---
For Patients: As a result of the Cures Act, medical imaging exams and procedure reports are released immediately into your electronic medical record. You may view this report before your referring provider. If you have questions, please contact your health care provider. Indication: Stroke Technique: T1 sagittal as well as diffusion, FLAIR and T2 axial images were obtained. No IV contrast. Comparison: None are available. Findings: Clustered foci of cortical diffusion restriction and T2 signal change are noted along the posterior aspect of the left sylvian fissure, consistent with acute infarcts involving a posterior branch of the left middle cerebral artery. No mass effect. No evidence for recent or remote hemorrhage. No previous cortical infarcts are identified Multiple small foci of T2 signal change are noted in the white matter of both cerebral hemispheres compatible with background moderate small vessel ischemic change. There is also mild cerebral atrophy. No ventricular obstruction. Grossly normal flow voids are maintained in the intracranial vascular structures. The craniovertebral junction is unremarkable, with a patent foramen magnum. Both temporal bones are well aerated. There is trace membrane thickening in the ethmoid paranasal sinuses. Impression: 1. Multiple small acute cortical infarcts are noted along the posterior aspect of the left sylvian fissure, consistent with a left MCA branch occlusion. 2. No intracranial hemorrhage. No mass effect. 3. Background moderate small vessel ischemic change and mild cerebral atrophy. Dictated by Matt Biswas MD @ 12/23/2021 12:05:28 PM (Electronically Signed)
== END 2021-12-23 17:15 | disposition home or self-care (01) | DRG 66 ==
LOC: ED 17:49 → MEDSURG 18:20
PROVIDERS: Admitting Provider Family Medicine; Emergency Provider Family Medicine; PCP Family Medicine; Visit Provider Family Medicine
DX: I63.232 Cerebral infarction due to unspecified occlusion or stenosis of left carotid arteries (principal); I63.231 Cerebral infarction due to unspecified occlusion or stenosis of right carotid arteries; R47.01 Aphasia; R47.89 Other speech disturbances; R51.9 Headache, unspecified; I10 Essential (primary) hypertension; J44.9 Chronic obstructive pulmonary disease, unspecified; E78.5 Hyperlipidemia, unspecified; F17.210 Nicotine dependence, cigarettes, uncomplicated; G47.00 Insomnia, unspecified
CPT/HCPCS: 36415; 70450; 70496; 70498; 70551; 80048; 80061; 82077; 82962; 83880; 84484; 85025; 86140; 87635; 92523; 92610; 93005; 93306; 94761; 97112; 97161; 97165; 99285; 99291; A9270; J7030; Q9967; S4990

== ENCOUNTER 2022-08-01 15:49 | Outpatient (CLI) | payer MEDICARE, BC, SELFPAY | END 2022-08-01 15:50 | disposition home or self-care (01) | PROVIDERS: PCP Family Medicine; Visit Provider Family Medicine | DX: E78.2 Mixed hyperlipidemia (principal); E55.9 Vitamin D deficiency, unspecified; I10 Essential (primary) hypertension; I67.9 Cerebrovascular disease, unspecified | CPT/HCPCS: 80048; 84443; 85025; 86140 ==

== ENCOUNTER 2023-06-07 12:26 | Outpatient (CLI) | payer MEDICARE, BC, SELFPAY | END 2023-06-07 12:27 | disposition home or self-care (01) | PROVIDERS: PCP Family Medicine; Visit Provider Family Medicine | DX: E78.2 Mixed hyperlipidemia (principal); I10 Essential (primary) hypertension; Z79.899 Other long term (current) drug therapy | CPT/HCPCS: 80048; 80061; 84460 ==

== ENCOUNTER 2023-06-20 09:12 | Outpatient (CLI) | payer MEDICARE, BC, SELFPAY ==
--- NOTE | 2023-06-20 10:35 | P.ANES_ITS ---
Anesthesia Charges Start Date/Time Anesthesia Start Date: 06/20/23 Anesthesia Start Time: 09:55 Stop Date/Time Anesthesia Stop Date: 06/20/23 Anesthesia Stop Time: 10:33 Summary Extremes of Age - Over 70 or under 1: FACTORY MAINTENANCE MANAGER
--- NOTE | 2023-06-20 11:34 | W.ANESCHARGE ---
Anesthesia Charges Start Date/Time Anesthesia Start Date: 06/20/23 Anesthesia Start Time: 09:55 Stop Date/Time Anesthesia Stop Date: 06/20/23 Anesthesia Stop Time: 10:33 Summary Extremes of Age - Over 70 or under 1: MDA
== END 2023-06-20 09:13 | disposition home or self-care (01) ==
LOC: OP CLINIC 09:12
PROVIDERS: PCP Family Medicine; Visit Provider Surgery
DX: Z12.11 Encounter for screening for malignant neoplasm of colon (principal); K63.5 Polyp of colon; K64.8 Other hemorrhoids; Z86.010 Personal history of colon polyps
CPT/HCPCS: 00811; 45385; 88305; 99100; J2704

== ENCOUNTER 2024-01-10 11:13 | Outpatient (CLI) | payer MEDICARE, BC, SELFPAY | END 2024-01-10 11:14 | disposition home or self-care (01) | PROVIDERS: PCP Family Medicine; Visit Provider Family Medicine | DX: R21 Rash and other nonspecific skin eruption (principal) | CPT/HCPCS: 80053; 86038; 86140; 86618 ==

== ENCOUNTER 2024-01-12 22:19 | Outpatient (REF) | payer MEDICARE, BC, SELFPAY ==
[2024-01-14 23:47] LABS: Anti-Nuclear Ab(ANA)IgG ELISA None Detected (None Detected)
== END 2024-01-12 22:20 | disposition home or self-care (01) ==
LOC: NPINS 22:19
PROVIDERS: PCP Family Medicine; Visit Provider Physician Assistant
DX: L30.8 Other specified dermatitis (principal)
CPT/HCPCS: 84443; 86038

== ENCOUNTER 2024-06-20 14:06 | Outpatient (CLI) | payer MEDICARE, BC, SELFPAY | END 2024-06-20 14:07 | disposition home or self-care (01) | PROVIDERS: PCP Family Medicine; Visit Provider Family Medicine | DX: E78.2 Mixed hyperlipidemia (principal); R21 Rash and other nonspecific skin eruption | CPT/HCPCS: 80048; 80061; 85025; 85651; 86038; 86140; 86431 ==

== ENCOUNTER 2025-02-10 11:21 | Outpatient (CLI) | payer MEDICARE, BC, SELFPAY | END 2025-02-10 11:22 | disposition home or self-care (01) | PROVIDERS: PCP Family Medicine; Visit Provider Family Medicine | DX: I10 Essential (primary) hypertension (principal); R21 Rash and other nonspecific skin eruption | CPT/HCPCS: 80048; 80076; 85025 ==